=== PATIENT | female | born 1995 | race Caucasian/White ===

== ENCOUNTER 2018-02-20 20:21 | Emergency (ER) | payer BC ==
[2018-02-20 20:29] VITALS: BP 131/89
[2018-02-20] MEDS ORDERED: IBUPROFEN 800 MG TABLET PO ONE (20:35)
--- NOTE | 2018-02-20 20:36 | ER Document Report ---
ED Medical Screen (RME) - General Chief Complaint: Head Injury Stated Complaint: HEAD INJURY Time Seen by Provider: 02/20/18 20:34 Notes: 22 years old female accidentally sustained an injury to the left frontoparietal region by hitting on a cupboard. She momentarily passed out. Currently having some blurring of vision therefore present to the ED. No focal weakness numbness tingling sensation. TRAVEL OUTSIDE OF THE [place] IN LAST 30 DAYS: No - Related Data Allergies/Adverse Reactions: No Known Allergies Allergy (Unverified 02/20/18 20:34) Past Medical History - Social History Chew tobacco use (# tins/day): No Frequency of alcohol use: None Drug Abuse: None Renal/ Medical History: Denies: Hx Peritoneal Dialysis Physical Exam - Vital signs Vitals: Temp Pulse Resp BP Pulse Ox 98.2 F 102 H 18 131/89 H 96 02/20/18 20:28 02/20/18 20:28 02/20/18 20:28 02/20/18 20:28 02/20/18 20:28 Course - Vital Signs Vital signs: Temp Pulse Resp BP Pulse Ox 98.2 F 102 H 18 131/89 H 96 02/20/18 20:28 02/20/18 20:28 02/20/18 20:28 02/20/18 20:28 02/20/18 20:28
--- NOTE | 2018-02-20 20:59 | RADIOLOGY REPORT (SQ) ---
EXAM DESCRIPTION: CT HEAD WITHOUT COMPLETED DATE/TIME: 02/20/2018 8:48 pm REASON FOR STUDY: Head injury COMPARISON: None. TECHNIQUE: Axial images acquired through the brain without intravenous contrast. Images reviewed wi th bone, brain and subdural windows. Additional sagittal and coronal reconstructions were generated. Images stored on PACS. All CT scanners at this facility use dose modulation, iterative reconstruction, and/or weight based d osing when appropriate to reduce radiation dose to as low as reasonably achievable (ALARA). [facility]: Dose Right [facility]: CareDose [facility]: Dose Right [facility]: Teradose 4D [facility]: Learnhive RADIATION DOSE: CT Rad equipment meets quality standard of care and radiation dose reduction techniq ues were employed. CTDIvol: 53.2 mGy. DLP: 1017 mGy-cm. mGy. LIMITATIONS: None. FINDINGS: VENTRICLES: Normal size and contour. CEREBRUM: No masses. No hemorrhage. No midline shift. No evidence for acute infarction. Normal gra y/white matter differentiation. No areas of low density in the white matter. CEREBELLUM: No masses. No hemorrhage. No alteration of density. No evidence for acute infarction. EXTRAAXIAL SPACES: No fluid collections. No masses. ORBITS AND GLOBE: No intra- or extraconal masses. Normal contour of globe without masses. CALVARIUM: No fracture. PARANASAL SINUSES: No fluid or mucosal thickening. SOFT TISSUES: No mass or hematoma. OTHER: No other significant finding. IMPRESSION: NORMAL BRAIN CT WITHOUT CONTRAST. EVIDENCE OF ACUTE STROKE: NO. COMMENT: Quality ID # [id number]: Final reports with documentation of one or more dose reduction techniques (e.g., Automated exposure control, adjustment of the mA and/or kV according to patient size, use of iterative reconstruction technique) TECHNICAL DOCUMENTATION: JOB ID: [id number] [employer]- All Rights Reserved Reading location - IP/workstation name: [email or web address]
--- NOTE | 2018-02-20 21:07 | ER Document Report ---
ED General - General Chief Complaint: Head Injury Stated Complaint: HEAD INJURY Time Seen by Provider: 02/20/18 20:34 Notes: Patient is a 22 year old female that comes to the ED for chief complaint of headaches, blurred vision, difficulty focusing, nausea for the past 6 days. 6 days ago she had a head injury (hit her head while turning on a corner cabinet, per fiancee was knocked out for less than 30 seconds, vomited twice that night, but they assumed it was a concussion and delayed evaluation patient states. She reports very mild current headache, denies any other current symptoms. PMH hypothyroidism, depression. TRAVEL OUTSIDE OF THE [place] IN LAST 30 DAYS: No - Related Data Allergies/Adverse Reactions: No Known Allergies Allergy (Unverified 02/20/18 20:34) Past Medical History - General Information source: Patient - Social History Smoking Status: Never Smoker Chew tobacco use (# tins/day): No Frequency of alcohol use: None Drug Abuse: None Lives with: Family Family History: Reviewed & Not Pertinent Patient has suicidal ideation: No Patient has homicidal ideation: No Endocrine Medical History: Reports: Hx Hypothyroidism Renal/ Medical History: Denies: Hx Peritoneal Dialysis Surgical Hx: Negative - Immunizations Immunizations up to date: Yes Hx Diphtheria, Pertussis, Tetanus Vaccination: Yes Review of Systems - Review of Systems Constitutional: No symptoms reported EENT: No symptoms reported Cardiovascular: No symptoms reported Respiratory: No symptoms reported Gastrointestinal: No symptoms reported Genitourinary: No symptoms reported Female Genitourinary: No symptoms reported Musculoskeletal: See HPI Skin: No symptoms reported Hematologic/Lymphatic: No symptoms reported Neurological/Psychological: See HPI Physical Exam - Vital signs Vitals: Temp Pulse Resp BP Pulse Ox 98.2 F 102 H 18 131/89 H 96 02/20/18 20:28 02/20/18 20:28 02/20/18 20:28 02/20/18 20:28 02/20/18 20:28 - Notes Notes: GENERAL: Alert, interacts well. No acute distress. HEAD: Normocephalic, atraumatic. EYES: Pupils equal, round, and reactive to light. Extraocular movements intact. ENT: Oral mucosa moist, tongue midline. Oropharynx unremarkable. Airway patent. Nares patent, no nasal septal hematoma, TM's intact. NECK: Full range of motion. Supple. Trachea midline. LUNGS: Clear to auscultation bilaterally, no wheezes, rales, or rhonchi. No respiratory distress. HEART: Regular rate and rhythm. No murmur ABDOMEN: Soft, non-tender. Non-distended. Bowel sounds present in all 4 quadrants. GENITOURINARY: Deferred EXTREMITIES: Moves all 4 extremities spontaneously. No edema, normal radial and dorsalis pedis pulses bilaterally. No cyanosis. BACK: no cervical, thoracic, lumbar midline tenderness. No saddle anesthesia, normal distal neurovascular exam. NEUROLOGICAL: Alert and oriented x3. Normal speech. [cranial nerves II through XII grossly intact]. PSYCH: Normal affect, normal mood. SKIN: Warm, dry, normal turgor. No rashes or lesions noted. Course - Re-evaluation Re-evalutation: Patient is alert and well-appearing on my evaluation. She is not tachycardic. Neurological exam is normal. Only a very mild headache reported at this time, no current dizziness, nausea, or blurred vision. Unremarkable back/neck exam. CT from triage was reviewed, this was normal, I discussed this with patient, discussed her symptoms and exam, discussed her probable postconcussive symptoms in detail. Discussed recommendation follow-up, provided with work release, patient states satisfaction and agreement. - Vital Signs Vital signs: Temp Pulse Resp BP Pulse Ox 98.2 F 102 H 18 131/89 H 96 02/20/18 20:28 02/20/18 20:28 02/20/18 20:28 02/20/18 20:28 02/20/18 20:28 Discharge - Discharge Clinical Impression: Head injury Qualifiers: Encounter type: initial encounter Qualified Code(s): S09.90XA - Unspecified injury of head, initial encounter Headache Qualifiers: Headache type: unspecified Headache chronicity pattern: acute headache Intractability: not intractable Qualified Code(s): R51 - Headache Condition: Stable Disposition: HOME, SELF-CARE Additional Instructions: Your neurological exam and cat scan are normal. Your symptoms and injury are very suggestive of a post concussive syndrome. Rest whenever possible, sleep if you develop a headache, you can take Tylenol/ ibuprofen and Benadryl to help with headaches. Follow-up with primary care for additional evaluation. See additional instructions below. Return for any concerning symptoms. Post-Concussion Syndrome Post-concussion syndrome often follows a mild head injury. Dizziness, mild nausea, mild headache, trouble concentrating, and a general sense of "not being right" may persist for a week or two. This is a frequent complication of concussion. However, if the symptoms worsen, or new symptoms develop, you should be re-examined by the physician. There is no specific cure for post-concussion syndrome. You can take mild pain medication such as ibuprofen or acetaminophen. While you should not drive if you are dizzy, you can get back to your regular activities as quickly as the symptoms will allow. And while vigorous exercise may worsen the headache, mild physical activity often is helpful. Sitting and thinking about your symptoms will worsen them. If difficulties continue, you may need referral for special therapy to help you regain full mental function. Call the physician if you are worsening, or if symptoms are still present in one week. Report any new symptoms immediately. Forms: Return to Work Referrals: SOHAN TAFOYA MD [NO LOCAL MD] - Follow up as needed
== END 2018-02-20 21:33 | disposition home or self-care (01) ==
LOC: ER 20:21
DX: S09.90XA Unspecified injury of head, initial encounter (principal); H53.8 Other visual disturbances; R11.0 Nausea; W22.09XA Striking against other stationary object, initial encounter; E03.9 Hypothyroidism, unspecified
CPT/HCPCS: 70450; 99284

== ENCOUNTER → 2018-06-30 | Emergency (ER) | payer BC, OTHER ==
[~2018-06-30] MED LIST: DIAZEPAM INJ 10 MG/2 ML DISP.SYRIN IM ONE; DIAZEPAM INJ 10 MG/2 ML DISP.SYRIN ONE; LEVETIRACETAM 1500 MG/NACL-ISO 1,500 MG/100 ML RTUPB IV ONE; MIDAZOLAM 2 MG/2 ML INJ IM ONE; MIDAZOLAM 2 MG/2 ML INJ IV ONE; MIDAZOLAM 2 MG/2 ML INJ ONE; NORMAL SALINE 1000 ML 1,000 ML IV ONE
--- NOTE | 2018-06-30 18:44 | ER Document Report ---
ED Medical Screen (RME) - General Chief Complaint: Altered Mental Status Stated Complaint: POSSIBLE SEIZURE Time Seen by Provider: 06/30/18 18:39 TRAVEL OUTSIDE OF THE [place] IN LAST 30 DAYS: No - HPI Patient complains to provider of: Possible seizure Notes: 06/30/18 18:42 Patient is a 23-year-old female brought to the emergency room by spouse for complaints of possible seizure, [facility] for what they were told with syncopal episodes, however today she had an episode lasting approximately 2-1/2 minutes where she had generalized shaking was unconscious and according to spouse patient turned purple, he brought her to the emergency room immediately and upon arriving at the triage desk and appears post ictal RAPID MEDICAL EVALUATION DISCLOSURE I have seen this patient as part of a Rapid Medical Evaluation and, if applicable, placed any initially appropriate orders. The patient will be seen and fully evaluated, including a full history and physical exam, by a provider (in Main ED or Fast Track) when a room becomes available. - Related Data Allergies/Adverse Reactions: No Known Allergies Allergy (Verified 06/30/18 18:35) Past Medical History Endocrine Medical History: Reports: Hx Hypothyroidism Renal/ Medical History: Denies: Hx Peritoneal Dialysis - Immunizations Immunizations up to date: Yes Hx Diphtheria, Pertussis, Tetanus Vaccination: Yes
--- NOTE | 2018-06-30 19:27 | ER Document Report ---
ED General - General Chief Complaint: Altered Mental Status Stated Complaint: POSSIBLE SEIZURE Time Seen by Provider: 06/30/18 18:39 Cannot obtain history due to: Altered mental status, Other - Postictal Notes: Patient is a 23-year old female with no chronic medical problems who presents postictal, agitated, unable to provide history. Initial attempt to history taking are not feasible as the patient is kicking, screaming, agitated. History as provided by significant other documented in the course section. TRAVEL OUTSIDE OF THE [place] IN LAST 30 DAYS: No - Related Data Allergies/Adverse Reactions: No Known Allergies Allergy (Verified 06/30/18 18:35) Past Medical History - General Information source: Relative - Social History Smoking Status: Never Smoker Frequency of alcohol use: Occasional Drug Abuse: None Lives with: Spouse/Significant other Family History: Reviewed & Not Pertinent Endocrine Medical History: Reports: Hx Hypothyroidism Renal/ Medical History: Denies: Hx Peritoneal Dialysis - Immunizations Immunizations up to date: Yes Hx Diphtheria, Pertussis, Tetanus Vaccination: Yes Review of Systems - Review of Systems -: Yes ROS unobtainable due to patient's medical condition Physical Exam - Vital signs Vitals: Temp 98.3 F 06/30/18 19:56 Interpretation: Tachycardic Notes: PHYSICAL EXAMINATION: GENERAL: Agitated, flailing around the bed HEAD: Atraumatic, normocephalic. EYES: Pupils dilated to 5 mm, sluggish with reactive bilaterally extraocular movements intact, sclera anicteric, conjunctiva are normal. ENT: nares patent, oropharynx clear without exudates. Dry mucous membranes. NECK: Normal range of motion, supple without lymphadenopathy LUNGS: Breath sounds clear to auscultation bilaterally and equal. No wheezes rales or rhonchi. HEART: Regular tachycardia without murmurs ABDOMEN: Soft, nontender, normoactive bowel sounds. No guarding, no rebound. No masses appreciated. EXTREMITIES: Normal range of motion, no pitting or edema. No cyanosis. NEUROLOGICAL: Moves all extremity spontaneously. Does not follow commands on initial assessment. PSYCH: Agitated, combative SKIN: Warm, Dry, normal turgor, no rashes or lesions noted. Course - Re-evaluation Re-evalutation: 06/30/18 19:22 Documentation is delayed as I been at this patient's bedside continuously for the past 25 minutes. In summary on my initial assessment after I was called to the room by nursing staff the patient was aggressive and postictal. She was not communicating in any effective manner. Nonspecifically moving all of her arms around, crying out, unable to be redirected by her significant other. The patient was then personally witnessed by me to have a generalized tonic-clonic seizure. This started with left gaze deviation with left facial spasming and left upper extremity generalized tonic-clonic movement. This then moved to secondary complete generalization with tonic clonic movements of all 4 extremities. This episode did last for approximately 90 seconds during which the patient became cyanotic, hypoxic into the 50s which responded to supplemental oxygenation. Patient was given 2 mg of intramuscular midazolam whi ch did terminate the seizure. An IV was placed and patient will be loaded with 1500 mg of Keppra. This is actually the patient's third generalized tonic- clonic seizure today by history. This is the first 1 that was witnessed here in the emergency department but per the significant other does report the patient had an episode at [facility] which sounds to be more like a partial left-sided seizure. She then had a generalized tonic-clonic seizure at home in which she again became cyanotic, started with left-sided facial twitching, spasming and then devolved into generalized tonic-clonic movement. At this point the patient does meet criteria for status epilepticus as this third third seizure occurred prior to resolution of the postictal phase from the second seizure. Given that this is a status epilepticus picture the patient will be discussed with neurology at [facility]. Patient did have her first episode on Saturday, was seen at [place], significant other reports that she had a CT of her head which was noted to be completely unremarkable as well as laboratories which were unremarkable. Will therefore not repeat CT imaging of the head today. Patient is in guarded condition, will be reassessed at regular intervals. 06/30/18 19:43 Patient is awake, postictal, agitated. 2 mg of midazolam IV will be administered. 06/30/18 20:44 Patient is resting much more comfortably. No longer agitated. I will consult with neurology at [facility]. 06/30/18 21:16 I have discussed this case at length with the neuro forestry laborer at [facility] who did not feel that the patient was appropriate for neuro intensive care admission which I do agree with given that she is currently stable. I then did discuss at length with the neurologist who has accepted the patient and agrees with management to this point. If patient has any additional seizures requiring sedation the patient is requested to be upgraded to ICU per the accepting neurologist. 06/30/18 22:40 Patient has not had any further seizures, has not quadrant initial medications. Vitals have normalized. Patient is somewhat sedated although oriented x3. Follow commands in all 470s. No focal neurologic deficits. I have updated [facility] on patient's current status. - Vital Signs Vital signs: Temp Pulse Resp BP Pulse Ox 98.3 F 16 105/69 95 06/30/18 19:56 06/30/18 23:26 06/30/18 23:26 06/30/18 23:26 - Laboratory Result Diagrams: 06/30/18 19:50 06/30/18 19:50 Laboratory results interpreted by me: 06/30/18 06/30/18 19:50 19:59 Carbon Dioxide 15 L Anion Gap 23 H Glucose 168 H POC Glucose 166 H Critical Care Note - Critical Care Note Total time excluding time spent on procedures (mins): 38 Comments: Critical care time spent obtaining history from patient or surrogate, discussions with consultants, development of treatment plan with patient or surrogate, evaluation of patient's response to treatment, examination of patient, ordering and performing treatments and interventions, ordering and review of laboratory studies, re-evaluation of patient's condition, ordering and review of radiographic studies and review of old charts Discharge - Discharge Clinical Impression: Status epilepticus, New onset seizure, Agitation Condition: Fair Disposition: [facility]
[2018-06-30 20:10] LABS: ABSOLUTE LYMPHOCYTES (AUTO) 1.1 10^3/uL (0.5-4.7); ABSOLUTE MONOCYTES (AUTO) 0.8 10^3/uL (0.1-1.4); ABSOLUTE NEUT (AUTO) 6.5 10^3/uL (1.7-8.2); BASOPHILS % (AUTO) 0.4 % (0-2); EOSINOPHILS % (AUTO) 0.2 % (0-6); HEMOGLOBIN 14.4 g/dL (12.0-15.5); LYMPHOCYTES % (AUTO) 13.5 % (13-45); MEAN CORPUSCULAR HEMOGLOBIN 28.2 pg (27.0-33.4); MEAN CORPUSCULAR HGB CONC 33.5 g/dL (32.0-36.0); MEAN CORPUSCULAR VOLUME 84 fl (80-97); MONOCYTES % (AUTO) 9.3 % (3-13); PLATELET COUNT 232 10^3/uL (150-450); RED CELL DISTRIBUTION WIDTH 13.4 % (11.5-14.0); SEGMENTED NEUTROPHILS % (AUTO) 76.6 % (42-78); TOTAL CELLS COUNTED % (AUTO) 100 %; WHITE BLOOD COUNT 8.5 10^3/uL (4.0-10.5)
[2018-06-30 20:28] LABS: ALANINE AMINOTRANSFERASE 15 U/L (9-52); ALBUMIN 4.5 g/dL (3.5-5.0); ALKALINE PHOSPHATASE 51 U/L (38-126); ASPARTATE AMINO TRANSFERASE 20 U/L (14-36); BILIRUBIN,DIRECT 0.2 mg/dL (0.0-0.4); BILIRUBIN,TOTAL 0.2 mg/dL (0.2-1.3); BLOOD UREA NITROGEN 10 mg/dL (7-20); CALCIUM 10.1 mg/dL (8.4-10.2); GLUCOSE 168 mg/dL (75-110); POTASSIUM 3.6 mmol/L (3.6-5.0); TOTAL PROTEIN 7.1 g/dL (6.3-8.2)
[2018-06-30 20:33] LABS: CARBON DIOXIDE 15 mmol/L (22-30); CHLORIDE 103 mmol/L (98-107); SODIUM 140.5 mmol/L (137-145)
[2018-06-30 20:34] LABS: ALCOHOL < 10 mg/dL (NONE DETECTED); ANION GAP 23 (5-19)
[2018-06-30 23:35] VITALS: BP 105/69
== END | disposition short-term general hospital (02) ==
LOC: ER 18:31
DX: G40.901 Epilepsy, unspecified, not intractable, with status epilepticus (principal); R45.1 Restlessness and agitation; R41.82 Altered mental status, unspecified
CPT/HCPCS: 94640; 99291; 96372; 96361; 96375; 96365; 36415; 82962; 80307; 83735; 84703; 85025; 80053; J2250; J3360; J7030; J1953

== ENCOUNTER → 2019-10-26 | Outpatient (CLI) | payer BC, OTHER ==
--- NOTE | 2019-10-27 09:55 | RADIOLOGY REPORT (SQ) ---
EXAM DESCRIPTION: MRI LT LOWER JOINT WITHOUT IMAGES COMPLETED DATE/TIME: 10/26/2019 7:47 pm REASON FOR STUDY: (M25.562)PAIN IN LEFT KNEE M25.562 PAIN IN LEFT KNEE COMPARISON: None. TECHNIQUE: Leftknee images acquired and stored on PACS. Multiplanar images include fat sensitive se quences as T1, water sensitive sequences as FST2 or STIR, cartilage sensitive sequences as FSPD, and gradient echo sequences. LIMITATIONS: None. FINDINGS: JOINT AND BURSAE: No effusion. BONE CORTEX AND MARROW: No alteration of signal to suggest marrow replacement. No worrisome bone lesi ons. No occult fracture. ACL: Intact. No degeneration or ganglion cyst. PCL: Intact. MCL: Intact. No periligamentous edema or fluid. LCL: Intact. No periligamentous edema or fluid. MEDIAL MENISCUS: Increased T2 signal posterior horn without extension to the articular surface. LATERAL MENISCUS: No tears. No abnormal signal. MEDIAL COMPARTMENT: Cartilage preserved. No bone bruises or reactive marrow edema. No osteophytes. LATERAL COMPARTMENT: Cartilage preserved. No bone bruises or reactive marrow edema. No osteophytes. PATELLA: Focal signal alteration with adjacent subchondral cyst formation in the patella medial to mi dline. Intact retinaculum. EXTENSOR MECHANISM: Intact. Quadriceps and patella tendons normal. SOFT TISSUES: Adjacent muscles and subcutaneous tissues normal. Normal flow void in popliteal artery and vein. OTHER: No other significant finding. IMPRESSION: 1. Intrasubstance degeneration posterior horn medial meniscus. No tear identified. 2. Chondromalacia of the patella. TECHNICAL DOCUMENTATION: JOB ID: [id number] 2010 [employer]- All Rights Reserved Reading location - IP/workstation name: [email or web address]
== END ==
LOC: RAD 18:58
PROVIDERS: ATTEND Specialist/Technologist Athletic Trainer
DX: M22.42 Chondromalacia patellae, left knee (principal); M25.562 Pain in left knee